=== PATIENT | male | born 1945 | race Caucasian/White ===

== ENCOUNTER 2021-08-25 23:33 | Inpatient (IN) | payer MEDICARE ==
[~2021-08-25] VITALS: Ht 180.3 cm; Wt 97.3 kg
[~2021-08-25 23:33] MED LIST: ARIXTRA SC; CIPRO500 MG PO; COUMADIN2.5 MG PO; COUMADIN5 MG OR; COUMADIN5 MG PO; HYDROCHLOROT12.5 MG PO; JANUMET XR1 TA1 PO; LISINOPRIL10 MG PO; LORTAB 7.5 PO; METOPROL TAR25 MG OR; METOPROL TAR25 MG PO; NO HOME MEDS; PROAIR HFA108 MCG/AC IN; SEPTRA DS1 TAB PO; SYMBICORT1 AE1 IN; WARFARIN2.5 MG PO; WARFARIN5 MG PO
[2021-08-26 00:10] LABS: HEMATOCRIT 44.2 % (39.0-50.0); HEMOGLOBIN 14.2 g/dl (14.0-18.0); IMMATURE GRANULOCYTES 2.2 % (0.0-5.0); MEAN CELL VOLUME 92.1 fL CALC (80.0-100.0); MEAN CORPUSCULAR HGB 29.6 pG CALC (26.0-32.0); MEAN CORPUSCULAR HGB CONC 32.1 g/dL CAL (32.0-36.0); NEUT# 14.49 thou/uL (1.82-7.42); RED BLOOD COUNT 4.8 mill/uL (4.70-6.10); RED CELL DISTRI WIDTH 12.7 % (11.5-15.5)
[2021-08-26] MEDS ORDERED: LIPITOR20 MG PO (00:11)
[2021-08-26] MEDS ORDERED: LISINOPRIL20 MG PO (00:11)
[2021-08-26] MEDS ORDERED: GLIPIZIDE ER5 MG PO (00:12)
[2021-08-26] MEDS ORDERED: HYDROCHLOROT25 MG PO (00:12)
[2021-08-26] MEDS ORDERED: SPIRIVA IN (00:14)
[2021-08-26 00:28] LABS: ALBUMIN 3.6 g/dL (3.2-5.0); CREATININE 1.5 mg/dL (0.7-1.3); POTASSIUM 4.7 mmol/l (3.5-5.1); TOTAL PROTEIN 6.7 g/dL (6.3-8.2)
[2021-08-26 00:30] LABS: URINE BILIRUBIN - DIPSTICK NEGATIVE (NEGATIVE); URINE BLOOD DIPSTICK SMALL (NEGATIVE); URINE COLOR YELLOW; URINE GLUCOSE - DIPSTICK >=1000 mg/dL (NEGATIVE); URINE LEUK ESTERASE SMALL (NEGATIVE); URINE NITRITE - DIPSTICK POSITIVE (Negative); URINE PROTEIN - DIPSTICK TRACE mg/dL (NEG-TRACE); URINE SPECIFIC GRAVITY 1.015; URINE UROBILINOGEN - DIPSTICK 0.2 E.U./dL (0.2)
[2021-08-26 00:31] LABS: URINE KETONE NEGATIVE (NEGATIVE)
[2021-08-26 00:32] LABS: URINE BACTERIA MANY hpf; URINE EPITHELIAL CELLS MODERATE EPI/hpf (0-FEW); URINE RBC 50-100 RBC/hpf (0-5); URINE WBC >100 WBC/hpf (0-5)
[2021-08-26 00:33] LABS: PROTHROMBIN TIME 10.5 SECONDS (9.0-12.5)
[2021-08-26 00:36] LABS: BILIRUBIN, TOTAL 0.7 mg/dL (0.0-1.4); MAGNESIUM 1.3 mg/dL (1.6-2.3)
[2021-08-26 00:50] LABS: ACT PARTIAL THROMBO TIME < 17.8 SECONDS (20.0-32.5)
[2021-08-26 02:45] VITALS: BP 116/67
[2021-08-26 05:14] LABS: BASO% 0 % (0-3); EOS% 0 % (0-8); HEMATOCRIT 40.4 % (39.0-50.0); HEMOGLOBIN 13.3 g/dl (14.0-18.0); IMMATURE GRANULOCYTES 2.4 % (0.0-5.0); LYMPH% 5 % (15-41); MEAN CELL VOLUME 90.6 fL CALC (80.0-100.0); MEAN CORPUSCULAR HGB 29.8 pG CALC (26.0-32.0); MEAN CORPUSCULAR HGB CONC 32.9 g/dL CAL (32.0-36.0); MONO% 5 % (2-13); NEUT# 14.84 thou/uL (1.82-7.42); NEUT% 88 % (42-76); PLATELET COUNT 222 thou/uL (130-400); RED BLOOD COUNT 4.46 mill/uL (4.70-6.10); RED CELL DISTRI WIDTH 12.9 % (11.5-15.5)
[2021-08-26 05:35] LABS: BILIRUBIN, TOTAL 0.7 mg/dL (0.0-1.4); CREATININE 1.4 mg/dL (0.7-1.3); POTASSIUM 4.8 mmol/l (3.5-5.1); TOTAL PROTEIN 5.7 g/dL (6.3-8.2)
[2021-08-26 07:47] VITALS: BP 125/75
[2021-08-26 10:40] VITALS: BP 121/71
[2021-08-26 16:12] VITALS: BP 124/68
[2021-08-26 17:46] VITALS: BP 157/79
[2021-08-26 18:56] VITALS: BP 101/64
[2021-08-27] VITALS: BP 112/75
[2021-08-27 04:00] VITALS: BP 90/51
[2021-08-27 04:47] LABS: HEMATOCRIT 36.3 % (39.0-50.0); HEMOGLOBIN 11.9 g/dl (14.0-18.0); MEAN CELL VOLUME 90.1 fL CALC (80.0-100.0); MEAN CORPUSCULAR HGB 29.5 pG CALC (26.0-32.0); MEAN CORPUSCULAR HGB CONC 32.8 g/dL CAL (32.0-36.0); RED BLOOD COUNT 4.03 mill/uL (4.70-6.10)
[2021-08-27 05:05] LABS: CREATININE 1.6 mg/dL (0.7-1.3); MAGNESIUM 1.6 mg/dL (1.6-2.3); POTASSIUM 3.2 mmol/l (3.5-5.1)
[2021-08-27 07:35] VITALS: BP 99/59
[2021-08-27 10:50] VITALS: BP 97/56
[2021-08-27 14:59] VITALS: BP 131/82
[2021-08-27 19:00] VITALS: BP 149/84
[2021-08-28] VITALS: BP 117/71
[2021-08-28 03:56] VITALS: BP 96/52
[2021-08-28 04:37] LABS: HEMATOCRIT 36.2 % (39.0-50.0); HEMOGLOBIN 11.8 g/dl (14.0-18.0); IMMATURE GRANULOCYTES 1.7 % (0.0-5.0); MEAN CELL VOLUME 89.8 fL CALC (80.0-100.0); MEAN CORPUSCULAR HGB 29.3 pG CALC (26.0-32.0); MEAN CORPUSCULAR HGB CONC 32.6 g/dL CAL (32.0-36.0); NEUT# 4.64 thou/uL (1.82-7.42); RED BLOOD COUNT 4.03 mill/uL (4.70-6.10)
[2021-08-28 04:59] LABS: ALBUMIN 2.5 g/dL (3.2-5.0); CREATININE 1.4 mg/dL (0.7-1.3); POTASSIUM 3.5 mmol/l (3.5-5.1)
[2021-08-28 05:01] LABS: BILIRUBIN, TOTAL 0.3 mg/dL (0.0-1.4)
[2021-08-28 07:00] VITALS: BP 98/53
[2021-08-28 10:29] VITALS: BP 115/68
[2021-08-28 15:13] VITALS: BP 119/76
[2021-08-28 19:00] VITALS: BP 129/83
[2021-08-29] VITALS: BP 100/63
[2021-08-29 04:00] VITALS: BP 105/65
[2021-08-29 07:15] VITALS: BP 127/80
[2021-08-29] MEDS ORDERED: GLIPIZIDE ER5 MG PO (10:07)
[2021-08-29] MEDS ORDERED: LEVEMIR100 UNIT SC (10:08)
[2021-08-29] MEDS ORDERED: OMNICEF300 MG PO (10:11)
[2021-08-29 10:16] VITALS: BP 135/77
== END 2021-08-29 12:41 | disposition home or self-care (01) | DRG 194 ==
LOC: ED 23:33 → ED-I 08-26 00:50 → ED 08-26 01:16 → MS2 08-26 01:17
PROVIDERS: Nurse Practitioner; ADMIT Internal Medicine; ATTEND Internal Medicine
PROC: 0T9B70Z Drainage of Bladder with Drainage Device, Via Natural or Artificial Opening (ICD-10-PCS; principal; 2021-08-26)
DX: J18.9 Pneumonia, unspecified organism (principal); T83.518A Infection and inflammatory reaction due to other urinary catheter, initial encounter; N39.0 Urinary tract infection, site not specified; E87.2 Acidosis; N17.9 Acute kidney failure, unspecified; E11.65 Type 2 diabetes mellitus with hyperglycemia; E83.42 Hypomagnesemia; I12.9 Hypertensive chronic kidney disease with stage 1 through stage 4 chronic kidney disease, or unspecified chronic kidney disease; E11.22 Type 2 diabetes mellitus with diabetic chronic kidney disease; N18.9 Chronic kidney disease, unspecified; E87.6 Hypokalemia; E78.5 Hyperlipidemia, unspecified; J43.9 Emphysema, unspecified; N40.1 Benign prostatic hyperplasia with lower urinary tract symptoms; R35.0 Frequency of micturition; B96.1 Klebsiella pneumoniae [K. pneumoniae] as the cause of diseases classified elsewhere; Y84.6 Urinary catheterization as the cause of abnormal reaction of the patient, or of later complication, without mention of misadventure at the time of the procedure; Z79.84 Long term (current) use of oral hypoglycemic drugs; Z87.891 Personal history of nicotine dependence; Z20.822 Contact with and (suspected) exposure to COVID-19
CPT/HCPCS: G0378; J3475

== ENCOUNTER 2024-09-10 15:56 | Emergency (ER) | payer OTHER, MEDICARE ==
[2024-09-10] VITALS (47 sets, daily range): BP systolic 68–196; BP diastolic 33–158
[~2024-09-10] VITALS: Ht 180.3 cm; Wt 75.0 kg
[~2024-09-10 15:56] MED LIST changes: +ATORVASTATIN CA40 MG PO; +BACTRIM DS1 TAB PO; +GLIPIZIDE ER5 MG PO; +GLIPIZIDE10 M3 PO; +HYDROCHLOROT25 MG PO; +LANTUS SOL100 UNIT/M; +LEVEMIR100 UNIT SC; +LIPITOR20 MG PO; +LISINOPRIL20 MG PO; +LOPRESSOR25 M1 PO; +MAGOX 400400 MG PO; +NOVOLOG100 UNIT SC; +OMNI-PAC300 MG PO; +OMNICEF300 MG PO; +SPIRIVA IN
[2024-09-10] MEDS ORDERED: PROPOFOL 100 ML IV ONE (15:58)
[2024-09-10] MEDS ORDERED: NOREPINEPHRINE BITARTRATE 4 MG in DEXTROSE 5% 250 ML IV ONE (16:00)
[2024-09-10] MEDS ORDERED: SODIUM CHLORIDE 0.9% 1,000 ML IV ONE ×4 (16:05→19:25)
[2024-09-10] MEDS ORDERED: SODIUM CHLORIDE 0.9% 250 ML IV PRN (16:05)
[2024-09-10 16:51] LABS: HEMATOCRIT 40.8 % (39.0-50.0); HEMOGLOBIN 11.8 g/dl (14.0-18.0); IMMATURE GRANULOCYTES 2.7 % (0.0-5.0); LYMPH% 3.7 % (15-41); MEAN CELL VOLUME 82.6 fL CALC (80.0-100.0); MEAN CORPUSCULAR HGB 23.9 pG CALC (26.0-32.0); MEAN CORPUSCULAR HGB CONC 28.9 g/dL CAL (32.0-36.0); MONO% 7.4 % (2-13); NEUT# 19.34 thou/uL (1.82-7.42); NEUT% 86.2 % (42-76); RED BLOOD COUNT 4.94 mill/uL (4.70-6.10); RED CELL DISTRI WIDTH 18.5 % (11.5-15.5)
[2024-09-10 17:11] LABS: ALBUMIN 3.5 g/dL (3.2-5.0); TOTAL PROTEIN 6.5 g/dL (6.3-8.2)
[2024-09-10 17:13] LABS: INTERNATIONAL NORMALIZED RATIO 1.2 RATIO (0.7-1.3)
[2024-09-10 17:14] LABS: PROTHROMBIN TIME 13.2 SECONDS (9.0-12.5)
[2024-09-10] MEDS ORDERED: Iopamidol 370 (Isovue) 76% 100 ML SDV IV ONE (17:15)
[2024-09-10] MEDS ORDERED: ISOVUE-300 (Iopamidol) 100 ML SDV IV ONE (17:15)
[2024-09-10 17:22] LABS: URINE BILIRUBIN - DIPSTICK Negative (NEGATIVE); URINE BLOOD DIPSTICK Large (NEGATIVE); URINE GLUCOSE - DIPSTICK >=1000 mg/dL (NEGATIVE); URINE KETONE Negative (NEGATIVE); URINE NITRITE - DIPSTICK Negative (Negative); URINE PH 5.5 (4.5-8.0); URINE PROTEIN - DIPSTICK >=300 mg/dL (NEG-TRACE); URINE SPECIFIC GRAVITY >=1.030; URINE UROBILINOGEN - DIPSTICK 0.2 E.U./dL (0.2)
[2024-09-10 17:23] LABS: URINE COLOR Brown; URINE LEUK ESTERASE Small (NEGATIVE)
[2024-09-10 17:25] LABS: URINE AMORPH SEDIMENT MANY hpf (NONE-FER); URINE BACTERIA MANY hpf
[2024-09-10 17:26] LABS: URINE RBC >100 RBC/hpf (0-5); URINE WBC >100 WBC/hpf (0-5)
[2024-09-10 17:32] LABS: BILIRUBIN, TOTAL 0.7 mg/dL (0.2-1.3); MAGNESIUM 2.8 mg/dL (1.6-2.3); POTASSIUM 5.7 mmol/l (3.5-5.1)
[2024-09-10] MEDS ORDERED: LACTATED RINGER'S 1,000 ML IV ONE (17:35)
[2024-09-10] MEDS ORDERED: VANCOMYCIN HCL 1 GM in SODIUM CHLORIDE 0.9% 250 ML IV ONE (17:35)
[2024-09-10] MEDS ORDERED: PIPERACILLIN Sodium-Tazobactam 3.375 GM in SODIUM CHLORIDE 0.9% 100 ML IV ONE (17:35)
[2024-09-10 17:42] LABS: TSH, 3RD GENERATION 1.69 uIU/mL (0.47 - 4.68)
[2024-09-10] MEDS ORDERED: INSULIN REGULAR (HUMAN) 100 UNIT/ML INJ IV ONE (17:50)
[2024-09-10] MEDS ORDERED: INSULIN REGULAR (HUMAN) IN SOD 100 ML IV ONE ×2 (17:50→20:38)
[2024-09-10] MEDS ORDERED: DOXYCYCLINE HYCLATE 100 MG in SODIUM CHLORIDE 0.9% 100 ML IV ONE (19:05)
[2024-09-10] MEDS ORDERED: SODIUM BICARBONATE 8.4% 50 ML/SYR IV ONE (19:15)
[2024-09-10] MEDS ORDERED: FAMOTIDINE 10MG/ML 2ML SDV IV ONE (20:39)
[2024-09-10] MEDS ORDERED: DEXTROSE 250 ML IV PRN (21:15)
[2024-09-10] MEDS ORDERED: FAMOTIDINE 20 MG/TAB PO SCH (21:15)
[2024-09-10] MEDS ORDERED: INSULIN REGULAR (HUMAN) IN SOD 100 ML IV PRN (21:15)
[2024-09-10] MEDS ORDERED: DEXTROSE 50% 50 ML/SYR IV PRN (21:15)
[2024-09-10] MEDS ORDERED: NOREPINEPHRINE BITARTRATE 4 MG/VIAL SDV ONE (21:39)
== END 2024-09-10 22:11 | disposition short-term general hospital (02) | DRG 999 ==
LOC: ED 15:56
PROVIDERS: Family Medicine
PROC: 0T9B70Z Drainage of Bladder with Drainage Device, Via Natural or Artificial Opening (ICD-10-PCS; principal; 2024-09-10)
PROC: 0W9930Z Drainage of Right Pleural Cavity with Drainage Device, Percutaneous Approach (ICD-10-PCS; 2024-09-10)
PROC: 05HM33Z Insertion of Infusion Device into Right Internal Jugular Vein, Percutaneous Approach (ICD-10-PCS; 2024-09-10)
DX: A41.9 Sepsis, unspecified organism (principal); E11.10 Type 2 diabetes mellitus with ketoacidosis without coma; S06.9XAA Unspecified intracranial injury with loss of consciousness status unknown, initial encounter; S27.0XXA Traumatic pneumothorax, initial encounter; N17.9 Acute kidney failure, unspecified; E87.20 Acidosis, unspecified; I12.9 Hypertensive chronic kidney disease with stage 1 through stage 4 chronic kidney disease, or unspecified chronic kidney disease; E11.22 Type 2 diabetes mellitus with diabetic chronic kidney disease; N18.9 Chronic kidney disease, unspecified; R40.2432 Glasgow coma scale score 3-8, at arrival to emergency department; C76.2 Malignant neoplasm of abdomen; R65.20 Severe sepsis without septic shock; J44.9 Chronic obstructive pulmonary disease, unspecified; R31.9 Hematuria, unspecified; Z79.84 Long term (current) use of oral hypoglycemic drugs; Z79.4 Long term (current) use of insulin; Z20.822 Contact with and (suspected) exposure to COVID-19; X58.XXXA Exposure to other specified factors, initial encounter